=== PATIENT | female | born 1980 | race Two or more races ===

== ENCOUNTER 2019-10-03 07:20 | Inpatient (IN) | payer OTHER ==
[2019-10-03] MEDS ORDERED: ELECTROLYTE-148 SOLN 1,000 ML IV ONE (08:30)
[2019-10-03] MEDS ORDERED: ELECTROLYTE-148 SOLN 1,000 ML IV SCH (08:30)
[2019-10-03] MEDS ORDERED: CITRIC ACID/SODIUM CITRATE 30 ML UNIT-DOSE CUP PO ONE (08:30)
[2019-10-03 08:40] VITALS: BMI 29.9
[2019-10-03] MEDS ORDERED: OXYTOCIN 20 UNITS in 0.9% NS 40 UNIT/2,000 ML INFUS.BAG IV ONE (08:53)
[2019-10-03] MEDS ORDERED: BENZOCAINE 20% 57 GM BOTTLE TP PRN (09:09)
[2019-10-03] MEDS ORDERED: WITCH HAZEL 50% (TUCKS) 40 PAD/JAR PAD TP PRN (09:09)
[2019-10-03] MEDS ORDERED: diphenhydrAMINE HCL 25 MG CAPSULE (FP) PO PRN (09:09)
[2019-10-03] MEDS ORDERED: SIMETHICONE 80 MG TAB.CHEW (FP) PO PRN (09:09)
[2019-10-03] MEDS ORDERED: METHYLERGONOVINE MALEATE 0.2 MG/1 ML AMP IM PRN (09:09)
[2019-10-03] MEDS ORDERED: BENZOCAINE 28 GM HEMORRHOIDAL OINTMENT PR PRN (09:09)
--- NOTE | 2019-10-03 09:09 | HP ---
Past Medical History - Primary Care Physician PCP:: Zeina Walter - Admission Chief Complaint: 39yo P1 @ 39.2 wks with prior c/section for Elective c/section , + FM, no VB, no LOF, no Ctx History of Present Illness: 1. AMA - normal DNA testing 2. Prior c/section for repeat - posterior placenta 3. h/o Lap Olga Lidia 4. DM with prior - normal testing this 5. Multiple negative w/ups - by cardiology, LE Doppler, Cholestasis of 6. She received Flu shot and Tetnus shot this 7. GBS positive - not ROM - no need for prophylaxis History Source: Patient, Medical Record Limitations to Obtaining History: No Limitations - Past Medical History PROGRAM MANAGEMENT ANALYST: Yes: Migraine Gastrointestinal: Yes: Constipation ...: 2 ...Para: 1 ...Term: 1 ...: 0 ...Spon : 0 ...Induced : 0 ...Multiple Gestation: 0 ...LMP: 12/17/18 ... Weeks Gestation by Dates: 41.3 ...EDC by Dates: 09/23/19 ...EDC by Sono: 10/08/19 Heme/Onc: Yes: Anemia Dermatology: Yes: Psoriasis - Past Surgical History Past Surgical History: Yes: Cholecystectomy, Hx Myomectomy: No Hx Transabdominal Cerclage: No - Smoking History Smoking history: Never smoked Have you smoked in the past 12 months: No - Alcohol/Substance Use Hx Alcohol Use: No History of Substance Use: reports: None - Social History Usual Living Arrangement: Yes: With Spouse History of Recent Travel: No Home Medications - Allergies Allergies/Adverse Reactions: Allergies Allergy/AdvReac Type Severity Reaction Status Date / Time acetaminophen [From Tylenol] Allergy Severe Difficulty Verified 10/03/19 08:09 Breathing codeine Allergy Severe Nausea Verified 10/03/19 08:10 morphine Allergy Severe Low Blood Verified 10/03/19 08:09 Pressure - Home Medications Home Medications: Ambulatory Orders Vits96/Iron Fum/Folic [ Tablet] 1 each PO DAILY 10/03/19 Ustekinumab [Stelara] 45 mg IM 10/03/19 Review of Systems - Review of Systems Constitutional: reports: No Symptoms Eyes: reports: No Symptoms HENT: reports: No Symptoms Neck: reports: No Symptoms Cardiovascular: reports: No Symptoms Respiratory: reports: No Symptoms Gastrointestinal: reports: No Symptoms Genitourinary: reports: No Symptoms Breasts: reports: No Symptoms Reported Musculoskeletal: reports: No Symptoms Integumentary: reports: No Symptoms Neurological: reports: No Symptoms Endocrine: reports: No Symptoms Hematology/Lymphatic: reports: No Symptoms Psychiatric: reports: No Symptoms Pain Intensity: 0 Physical Exam - Maternity Vital Signs: Vital Signs Temperature 98.2 F 10/03/19 08:30 Pulse Rate 90 10/03/19 08:30 Respiratory Rate 18 10/03/19 08:30 Blood Pressure 132/87 10/03/19 08:30 O2 Sat by Pulse Oximetry (%) Constitutional: Yes: Well Nourished, No Distress, Calm Eyes: Yes: WNL, Conjunctiva Clear, EOM Intact HENT: Yes: WNL, Atraumatic, Normocephalic Neck: Yes: WNL, Supple, Trachea Midline Cardiovascular: Yes: WNL, Regular Rate and Rhythm Lungs: Clear to auscultation Breast(s): Yes: WNL - Abdominal Exam/OB Fundal Height: 39 Number of Fetuses: Single Presentation: Vertex Contractions: No Heart Rate (range): 145 Heart Rate Location: Midline Category: I Accelerations: Uniform Decelerations: None - Vaginal Exam/OB Vaginal Bleediing: No Dilatation (cm): 0 Effacement (%): 0 Amniotic Membrane Status: Intact Presentation: Vertex/Position Station: -3 - Physical Exam Musculoskeletal: Yes: WNL Extremities: Yes: WNL Edema: No Integumentary: Yes: Other (psoriatic lesions) ...Motor Strength: WNL Psychiatric: Yes: WNL, Alert, Oriented Assessment/Plan 39yo P1 @ 39.4wks with prior c/section for Elective repeat VSS, Afebrile MF Status reassuring Admit to L&D IVF, Wound prophylaxis, Labs Anesthesia informed Consent signed - all risks, benefits, alternatives discussed She changed her mind about tubal ligation
[2019-10-03] MEDS ORDERED: DEXTROSE 5%-LACTATED RINGERS 1,000 ML IV SCH (09:15)
[2019-10-03] MEDS ORDERED: OXYTOCIN 20 UNITS in 0.9% NS 20 UNIT/1,000 ML INFUS.BAG IV SCH (09:15)
[2019-10-03] MEDS ORDERED: DEXAMETHASONE SOD PHOSPHATE 4 MG/1 ML VIAL ONE (09:28)
[2019-10-03] MEDS ORDERED: ceFAZolin SODIUM 1 GM VIAL ONE (09:28)
[2019-10-03] MEDS ORDERED: MORPHINE 5 MG/10 ML AMP - FOR COMPOUNDING USE ONLY ONE (09:37)
--- NOTE | 2019-10-03 09:59 | OP ---
Operative Note - Note: Operative Date: 10/03/19 Pre-Operative Diagnosis: 39yo P 1 @ 39.2wks for Elective c/section Operation: Repeat c/section Findings: Viable female, APGARs 9/9, 8.6lb Full term placenta Normal tubes and ovaries bl Post-Operative Diagnosis: Same as Pre-op Surgeon: Zeina Walter Veneer Sheet Repairer: Evaristo Alcala Anesthesiologist/HOGSHEAD FILLER: Sofie Bonilla Anesthesia: Spinal Specimens Removed: FT placenta Estimated Blood Loss (mls): 400 Drains, Volume Out (mls): 600 Fluid Volume Replaced (mls): 2,000 Operative Report Dictated: Yes
[2019-10-03] MEDS ORDERED: CEFAZOLIN 1 GM/D5W 1 GM/50 ML BAG IVPB SCH (10:00)
--- NOTE | 2019-10-03 10:00 | PN ---
Delivery - Delivery Section: Repeat, Low Flap Transverse Type of Anesthesia: Spinal EBL (cc): 400 Delivery, Single - Stages of Labor Date of Delivery: 10/03/19 Time of Delivery: Date Placenta Delivered: 10/03/19 Time Placenta Delivered: Placenta: Yes: Expressed - Condition of Infant Machine Erector/Professor Of Mechanical Engineering Present: Yes Name: Tash Leonard Gender: Female Weight: 8 lb 6 oz Position: Right, OA - 1 Minute Total Score: 9 5 Minutes Total Score: 9 - Feeding Plan Initial Plan: Elected not to breastfeed exclusively throughout hospitalization Benefits of Exclusively reinforced: Yes Remarks - Remarks Remarks: Uncomplicated delivery of head and shoulders
[2019-10-03] MEDS ORDERED: MIDAZOLAM HCL 2 MG/2 ML SINGLE DOSE VIAL ONE (11:25)
[2019-10-03] MEDS ORDERED: ONDANSETRON 4 MG/2 ML VIAL IVPUSH PRN (12:16)
[2019-10-03] MEDS: IBUPROFEN 800 MG/8 ML IJ IVPB PRN ×2 (16:08→23:37)
[2019-10-03] MEDS: CEFAZOLIN 1 GM/D5W 1 GM/50 ML BAG IVPB SCH (17:43)
--- NOTE | 2019-10-03 22:51 | OP ---
DATE OF OPERATION: 10/03/2019 PREOPERATIVE DIAGNOSIS: A 39-year-old para 1 at 39 and 2 weeks for elective section. FINDINGS: Viable female, Apgars 9 and 9, weighing 8 pounds 6 ounces, placenta and normal tubes and ovaries bilaterally. POSTOPERATIVE DIAGNOSIS: A 39-year-old para 1 at 39 and 2 weeks for elective section. SURGEON: Jazmine Walter M.D. ANESTHESIOLOGIST: Evaristo Alcala M.D. DESCRIPTION OF OPERATIVE PROCEDURE: After ensuring informed consent, patient was brought to the operating room where Dr. Sofie Bonilla and Dr. Oleksandr Harris administered spinal anesthesia. Patient was placed in dorsal supine position with left lateral tilt. Abdomen was prepped in a sterile fashion. Pfannenstiel skin incision was created with the scalpel and dissected to the level of fascia with scalpel and Bovie cautery. Fascia was incised in the midline and fascial incision was extended bilaterally with Bovie cautery and dissected off the rectus abdominis muscle superiorly and inferiorly. Muscle was split in the midline. Peritoneum was entered bluntly with good visualization of underlying structures. Bladder was retracted with the low edge of the [place]. Vesicouterine peritoneum was tented and bladder flap was created with the low edge of the [place]. The bilateral gutters were packed with lap sponges. Uterine incision was created with the scalpel and extended bilaterally bluntly. 's head was delivered atraumatically. The rest of the infant's body was delivered without any difficulty. The cord was clamped and cut. The infant was handed to a waiting gis physical scientist. The placenta was expressed. Uterus was cleared of clots and debris. The cervix was opened with ring forceps. Uterine incision was repaired in 2 layers with 0 Biosyn. Excellent hemostasis was noted. Abdomen was irrigated, cleared of clots, debris, and bilateral sponges were removed. The peritoneum was closed with 0 Biosyn. Muscle was reapproximated at the midline with 0 Biosyn. The fascia was subsequently closed with 0 Vicryl. Skin was reapproximated with 2-0 chromic. Sonny's fascia and skin was closed with V-Loc suture, subcutaneous 4-0 Biosyn. Excellent hemostasis was noted throughout. The sponge and instrument count was correct x2. During the procedure normal bilateral tubes and ovaries were noted. Estimated blood loss was 400 mL. Patient received 2000 mL of IV fluids and drained 600 mL of clear urine. Patient was brought to the recovery room in stable condition. JAZMINE WALTER M.D. [id number]
[2019-10-04] MEDS: CEFAZOLIN 1 GM/D5W 1 GM/50 ML BAG IVPB SCH (01:04)
--- NOTE | 2019-10-04 07:18 | PN ---
Progress Note (short form) - Note Progress Note: Anesthesia Post Op Note Pt s/p spinal for repeat c/s Denies n/a, back pain reports good pain control ambulating VSS no apparent anesthesia complications Terrie Mitchell.
--- NOTE | 2019-10-04 07:51 | PN ---
Progress Note (short form) - Note Progress Note: pod 1, s/p repeat c/s, doing well, no excess vaginal bleeding Last Vital Signs Temp Pulse Resp BP Pulse Ox 98.1 F 58 L 18 110/53 L 99 10/04/19 05:38 10/04/19 05:38 10/04/19 06:00 10/04/19 05:38 10/03/19 14:00 abdomen soft, no distension, no cva incision dry, clean no calf tenderness lochia mild plan ambulate , cbc advance diet
[2019-10-04 08:45] LABS: BASO % 0.3 % (0-2.0); HEMATOCRIT 30.5 % (32.4-45.2); HEMOGLOBIN 10.7 GM/dL (10.7-15.3); LYMPH % 16.5 % (8-40); MCH 33.5 pg (25.7-33.7); MEAN CELL VOLUME 95.7 fl (80-96); MEAN PLT VOLUME 8.4 fl (7.5-11.1); MONO % 7.5 % (3.8-10.2); NEUT % 75.7 % (42.8-82.8); PLATELET COUNT 127 K/MM3 (134-434); RBC 3.19 M/mm3 (3.60-5.2); RDW 14.8 % (11.6-15.6); WHITE BLOOD COUNT 7.3 K/mm3 (4.0-10.0)
[2019-10-04] MEDS ORDERED: BISACODYL 10 MG SUPP.RECT RC PRN (09:09)
[2019-10-04] MEDS: IBUPROFEN 600 MG TABLET (FP) PO PRN ×3 (10:38→23:56)
--- NOTE | 2019-10-05 07:50 | PN ---
Post Progress Note - Subjective Subjective: Patient without acute complaints. Reports tolerating oral intake without nausea or vomiting. Ambulating without dizziness. Denies fevers or chills. Pain well controlled with oral pain medication. without difficulty. Passing flatus. Post Day: 2 Type of Delivery: Repeat C/S Vital Signs: Vital Signs Temperature 97.9 F 10/04/19 22:00 Pulse Rate 67 10/04/19 22:00 Respiratory Rate 18 10/04/19 22:00 Blood Pressure 106/67 10/04/19 22:00 O2 Sat by Pulse Oximetry (%) 99 10/03/19 14:00 Breast Exam: Yes: Soft Uterus: Yes: Fundus Firm Incision: Yes: Sutures intact Abdomen/GI: Yes: Abdomen soft Lochia: Yes: Rubra Lochia, amount: Small Extremities: Yes: Calves non-tender Perineum: Yes: Intact Activity: Ambulating - Labs Labs: CBC WBC 7.3 K/mm3 (4.0-10.0) 10/04/19 08:22 RBC 3.19 M/mm3 (3.60-5.2) L 10/04/19 08:22 Hgb 10.7 GM/dL (10.7-15.3) 10/04/19 08:22 Hct 30.5 % (32.4-45.2) L 10/04/19 08:22 MCV 95.7 fl (80-96) 10/04/19 08:22 MCH 33.5 pg (25.7-33.7) 10/04/19 08:22 MCHC 35.0 g/dl (32.0-36.0) 10/04/19 08:22 RDW 14.8 % (11.6-15.6) 10/04/19 08:22 Plt Count 127 K/MM3 (134-434) L 10/04/19 08:22 MPV 8.4 fl (7.5-11.1) 10/04/19 08:22 Absolute Neuts (auto) 5.5 K/mm3 (1.5-8.0) 10/04/19 08:22 Neutrophils % 75.7 % (42.8-82.8) 10/04/19 08:22 Lymphocytes % 16.5 % (8-40) 10/04/19 08:22 Monocytes % 7.5 % (3.8-10.2) 10/04/19 08:22 Eosinophils % 0.0 % (0-4.5) D 10/04/19 08:22 Basophils % 0.3 % (0-2.0) 10/04/19 08:22 Nucleated RBC % 0 % (0-0) 10/04/19 08:22 Assessment/Plan 39yo P2 s/p Repeat c/section POD # 2 VS, Afebrile Doing well Warm compress to the back - multiple attempts @ spinal no masses, no lesions, no SHANKAR cont. routine care declines h/h stable
[2019-10-05] MEDS: IBUPROFEN 600 MG TABLET (FP) PO PRN ×2 (11:40→20:30)
[2019-10-05] MEDS ORDERED: SENNOSIDES/DOCUSATE COMBO (SENNA PLUS) TABLET (UD) PO PRN (22:00)
--- NOTE | 2019-10-06 07:27 | PN ---
Progress Note (short form) - Note Progress Note: pod 3 s/p repeat c/s, doing well, no c/o ,passing gas CBC, BMP 10/04/19 08:22 Last Vital Signs Temp Pulse Resp BP Pulse Ox 97.7 F 71 18 115/70 99 10/05/19 22:00 10/05/19 22:00 10/05/19 22:00 10/05/19 22:00 10/03/19 14:00 abdomen soft, no distension, no cva incison dry, clean no calf tenderness plan ambulate, cbc today plan for d/c home in am
[2019-10-06 09:12] LABS: BASO % 0.4 % (0-2.0); EOS % 0.6 % (0-4.5); HEMATOCRIT 30.2 % (32.4-45.2); HEMOGLOBIN 10.8 GM/dL (10.7-15.3); MCH 33.8 pg (25.7-33.7); MCHC 35.6 g/dl (32.0-36.0); MEAN CELL VOLUME 94.8 fl (80-96); MEAN PLT VOLUME 8.4 fl (7.5-11.1); MONO % 6.2 % (3.8-10.2); NEUT % 74.8 % (42.8-82.8); PLATELET COUNT 165 K/MM3 (134-434); RBC 3.18 M/mm3 (3.60-5.2); RDW 14.7 % (11.6-15.6); WHITE BLOOD COUNT 4.4 K/mm3 (4.0-10.0)
[2019-10-06] MEDS: IBUPROFEN 600 MG TABLET (FP) PO PRN (11:16)
[2019-10-07 08:44] VITALS: BP 101/58; PULSE 75; TEMP 98.2
--- NOTE | 2019-10-07 12:33 | DS ---
Physical Exam-WATER TREATMENT SPECIALIST Vital Signs: Vital Signs Temperature 98.2 F 10/07/19 08:43 Pulse Rate 75 10/07/19 08:43 Respiratory Rate 18 10/07/19 08:43 Blood Pressure 101/58 L 10/07/19 08:43 O2 Sat by Pulse Oximetry (%) 99 10/03/19 14:00 Constitutional: Yes: Well Nourished, No Distress, Calm Eyes: Yes: WNL, Conjunctiva Clear HENT: Yes: WNL, Atraumatic, Normocephalic Neck: Yes: WNL, Supple, Trachea Midline Cardiovascular: Yes: WNL, Regular Rate and Rhythm Respiratory: Yes: WNL, Regular, CTA Bilaterally Gastrointestinal: Yes: WNL, Normal Bowel Sounds, Soft, Abdomen, Obese ...Rectal Exam: Yes: Deferred Renal/: Yes: WNL External Genitalia: Yes: Normal Internal Exam Deferred: Yes ....Post : Yes: Uterus firm, Uterus non-tender, Slight lochia rubra Breast(s): Yes: WNL Musculoskeletal: Yes: WNL Extremities: Yes: WNL Edema: Yes Edema: LLE: Trace, RLE: Trace Integumentary: Yes: WNL Wound/Incision: Yes: Clean/Dry, Well Approximated, Sutures Intact, Open to air Neurological: Yes: WNL, Alert, Oriented ...Motor Strength: WNL Psychiatric: Yes: WNL, Alert, Oriented Labs: CBC, BMP 10/06/19 07:30 Delivery - Delivery Section: Repeat, Low Flap Transverse Type of Anesthesia: Spinal Episiotomy/Laceration: None EBL (cc): 400 Delivery, Single - Stages of Labor Date of Delivery: 10/03/19 Time of Delivery: 11:20 Time Placenta Delivered: 11:21 Placenta: Yes: Expressed - Condition of Infant Dry Cans Operator/Rn Documentation Specialist Present: Yes Name: Tash Leonard Gender: Female Weight: 3.799 kg Position: Right, OA Total Hours ROM (Hrs/Mins): 0/2 - 1 Minute Total Score: 9 5 Minutes Total Score: 9 - Dequincy Feeding Plan Initial Plan: Elected not to breastfeed exclusively throughout hospitalization Benefits of Exclusively reinforced: Yes Discharge Summary Problems reviewed: Yes Reason For Visit: REPEAT C SECTION AMA Prior C/S Procedures: Principal: Repeat LT C/S Hospital Course: Normal postoperative and recovery. Condition: Good - Instructions Diet, Activity, Other Instructions: Physical activity Resume your normal everyday activity as tolerated no heavy lifting or exercise until seen by your surgeon. You may walk unlimited soheila of and climb stairs. You may resume driving the car when you feel safe and comfortable behind the wheel. No sexual activity as instructed. Wound care If you have a bandage, leave it on, and keep dry for 48-72 hours. After that time discard the outer bandage. If they are tapes on the skin under the out of bandage leave them in place. They will peel off in the next 7 to 10 days. Do Not Peel them off. You may shower the day after surgery. If there are tapes present on the skin, you may shower over them. Diet There are no dietary restrictions. Eat healthy, high-fiber foods. Drink 6 to 8 glasses of liquid each day. This will assist in keeping your bowels are regular. Pain management You may take Tylenol or acetaminophen or Ibuprofen (for example, Motrin, Advil etc.) from my pain prescription medication is ordered should be taken as prescribed for moderate to severe pain. Call MD for any of the following: Severe pain not relieved by medication Fever of 101 or higher Excessive bleeding or drainage on dressing Inability to urinate FOLLOW UP IN THE OFFICE IN 7-14 DAYS. PLEASE CALL Referrals: Zeina Walter MD [Staff Physician] - Disposition: HOME - Home Medications Comprehensive Discharge Medication List: Ambulatory Orders Vits96/Iron Fum/Folic [ Tablet] 1 each PO DAILY 10/03/19 Ustekinumab [Stelara] 45 mg IM 10/03/19 Prescription Drug Monitoring Program (I-STOP) results: I-STOP not reviewed
--- NOTE | 2019-10-11 18:45 | PATH ---
Surgical Pathology Report Patient Name: LANA CHARLTON [facility]. Rec. #: [id number] /Age/Gender: 1980 (Age: 39) / F Account: [id number] Location: [facility] OBS/FACILITY MAINTENANCE TECHNICIAN Taken: 10/03/2019 Received: 10/04/2019 Reported: 10/11/2019 Physicians: Zeina Walter M.D. Specimen(s) Received PLACENTA Clinical History for repeat , 39.2 weeks Psoriasis, AMA, possible GBS Final Diagnosis PLACENTA: THIRD TRIMESTER PLACENTA. TRIVASCULAR CORD. MEMBRANES WITH NO DIAGNOSTIC ABNORMALITIES. Electronically Signed Michael Paulson M.D. Gross Description The specimen is received fresh labeled placenta and is a 521 gram, 17.0 x 16.5 x 2.6 cm. placenta with attached membranes and umbilical cord. The attached membranes are ferraro, translucent with focal opacities and insert marginally. The umbilical cord measures 10 cm. in length and averages 1.2 cm. in diameter. The cord inserts eccentrically, 2 cm. to the nearest margin. No true knots or strictures are identified. Cut surface of the umbilical cord reveals 3 vessels. The surface is giordano-blue with minimal fibrin deposition and appropriate caliber vessels. The maternal surface is red-brown with focal defects. Sectioning reveals red-brown, spongy parenchyma. No lesions are identified. Habilitation Training Specialist sections are submitted in three cassettes as follows: 1- membrane rolls and umbilical cord; 2-3- full thickness sections of placenta. 10/06/201910/06/2019
== END 2019-10-07 13:55 | disposition home or self-care (01) | DRG 540 ==
LOC: JLDR 07:20 → J3W 14:45
PROVIDERS: ADMIT Obstetrics & Gynecology; ATTEND Obstetrics & Gynecology
PROC: 10D00Z1 Extraction of Products of Conception, Low, Open Approach (ICD-10-PCS; principal; 2019-10-03)
DX: O34.211 Maternal care for low transverse scar from previous cesarean delivery (principal); N85.8 Other specified noninflammatory disorders of uterus; O99.214 Obesity complicating childbirth; Z3A.39 39 weeks gestation of pregnancy; Z22.330 Carrier of Group B streptococcus; Z37.0 Single live birth
CPT/HCPCS: 36415; 36600; 82803; 85025; 86850; 86900; 86901; 88307-TC